=== PATIENT | female | born 1990 | race Caucasian/White ===

== ENCOUNTER 2021-06-12 11:25 | Emergency (ER) | payer BC ==
[~2021-06-12] VITALS: Ht 157.5 cm; Wt 72.6 kg
--- NOTE | 2021-06-12 11:35 | NUR ---
Dr Engle at the bedside for MSE.
[2021-06-12] MEDS ORDERED: LIDOCAINE HCL 1% 20 ML VIAL ONE (11:43)
[2021-06-12] MEDS ORDERED: LIDOCAINE HCL 1% 20 ML VIAL IJ ONE (11:45)
[2021-06-12] MEDS ORDERED: MUPI22OI2 TP (12:41)
[2021-06-12 12:46] VITALS: BP 116/67
--- NOTE | 2021-06-12 12:46 | NUR ---
Patient discharged to home in stable condition. Written and verbal after care instructions given. Patient verbalizes understanding of instructions. Stressed follow up or return to ER for worsening s/s.
== END 2021-06-12 12:46 | disposition home or self-care (01) ==
LOC: ER 11:25
DX: L03.011 Cellulitis of right finger (principal)
CPT/HCPCS: 10060; 99283; J3490; A4663

== ENCOUNTER 2021-06-16 20:47 | Emergency (ER) | payer BC ==
[~2021-06-16] VITALS: Ht 160 cm; Wt 72.6 kg
[~2021-06-16 20:47] MED LIST: MUPI22OI2 TP
--- NOTE | 2021-06-16 20:50 | NUR ---
pt in room c/o right index finger pain swelling.
--- NOTE | 2021-06-16 21:10 | NUR ---
Dr. Medina in room for JUMA
[2021-06-16] MEDS ORDERED: LIDOCAINE HCL 1% 20 ML VIAL IJ ONE (21:15)
[2021-06-16] MEDS ORDERED: LIDOCAINE HCL 1% 20 ML VIAL ONE (21:18)
[2021-06-16] MEDS ORDERED: NEOMY/BACITRA/POLYMYXIN B OINT UD PACKET TP ONE ×2 (21:34→21:45)
[2021-06-16 21:49] VITALS: BP 107/56
== END 2021-06-16 21:49 | disposition home or self-care (01) ==
LOC: ER 20:56
DX: Z48.01 Encounter for change or removal of surgical wound dressing (principal)
CPT/HCPCS: J3490

== ENCOUNTER 2023-02-09 22:38 | Emergency (ER) | payer BC ==
[~2023-02-09] VITALS: Ht 165.1 cm; Wt 54.4 kg
[2023-02-09] MEDS ORDERED: LIDOCAINE HCL 1% 20 ML VIAL ONE (23:23)
[2023-02-09] MEDS ORDERED: LIDOCAINE HCL 1% 20 ML VIAL IJ ONE (23:30)
[2023-02-09 23:56] LABS: *URINE HCG, QUAL NEGATIVE (NEGATIVE)
[2023-02-10] MEDS ORDERED: CLIN300C12 PO
[2023-02-10] MEDS ORDERED: CLINDAMYCIN HCL 150 MG CAPSULE PO ONE
[2023-02-10] MEDS ORDERED: ACETAMINOPHEN 325 MG TABLET PO ONE (00:15)
[2023-02-10] MEDS ORDERED: IBUPROFEN 400 MG TABLET PO ONE (00:15)
[2023-02-10 00:27] VITALS: BP 100/66; TEMP 97.8; O2SAT 99
== END 2023-02-10 00:27 | disposition home or self-care (01) ==
LOC: ER 22:40
DX: S61.431A Puncture wound without foreign body of right hand, initial encounter (principal); I89.1 Lymphangitis; R10.2 Pelvic and perineal pain; Z79.899 Other long term (current) drug therapy; W45.8XXA Other foreign body or object entering through skin, initial encounter; Y93.89 Activity, other specified; Y92.89 Other specified places as the place of occurrence of the external cause; Y99.8 Other external cause status
CPT/HCPCS: 99284; 10060; 84703; J3490; A4606; A4663